=== PATIENT | female | born 1940 | race Caucasian/White ===

== ENCOUNTER 2016-07-13 05:36 | Day surgery (SDC) | payer MEDICARE, OTHER ==
[~2016-07-13] VITALS: Ht 162.6 cm; Wt 81.8 kg
[2016-07-13] VITALS (10 sets, daily range): BP systolic 100–137; BP diastolic 53–89; PULSE 57–75; RESP 14–23; O2SAT 93–99
[~2016-07-13 05:36] MED LIST: ATOR20TA PO; CALC1CAP22 PO; CITA40TA13 PO; GABA-502 PO; HYG25 PO; LISI30TA5 PO; Lactated Ringer's 1,000 ML IV ONE; OXYB5TAB PO
[2016-07-13] MEDS ORDERED: EPHEDrine/NS 5 mg/mL 5 mL Syringe ONE (05:37)
[2016-07-13] MEDS ORDERED: Neostigmine 1 mg/mL 5 mL Inj ONE (05:37)
[2016-07-13] MEDS ORDERED: Propofol 10,000 mCg/mL 20 mL Inj ONE (05:37)
[2016-07-13] MEDS ORDERED: fentaNYL-PF 50 mCg/mL 2 mL Inj ONE (05:37)
[2016-07-13] MEDS ORDERED: Rocuronium 10 mg/mL 5 mL Inj ONE (05:37)
[2016-07-13] MEDS ORDERED: Glycopyrrolate 0.2 mg/mL 5 mL Inj ONE (05:37)
[2016-07-13] MEDS ORDERED: Ondansetron 2 mg/mL 2 mL Inj ONE (05:37)
[2016-07-13] MEDS ORDERED: Heparin 5,000 Unit/mL Inj SUBQ ONE (06:00)
--- NOTE | 2016-07-13 07:21 | PCM.HPANE ---
Patient Data Surgeon Admitting Provider: Attending Provider:Erik Joe MD Primary Care Physician:Michell Joe MD Other Provider:Darien Anderson Anesthesia Reason for Visit Left Flank Hernia Ht/WT & BMI Height (Feet): 5 Height (Inches): 4.00 Weight (Kilograms): 76.400 Body Mass Index 28.00 Allergies Coded Allergies: No Known Allergies (Verified , 07/08/16) Past Anesthesia History Anesthesia History: Denies:: Abnormal Airway, Anesthesia Reactions, Difficult Intubation, Malignant Hyperthermia Diabetes History Hx Diabetes?: No Current Bedside Blood Glucose: 113 MRSA MRSA: No Medications Hypertension Medication: Yes (LISINOPRIL,CHLORTHALIDONE) Home Meds Incl Beta Ana: No Reported Medications Oxybutynin Chloride ER 5 Mg Tab.er.245 Mg PO DAILY Ref 0 07/08/16 Calcium Carbonate/Vitamin D3 (Calcium 600 + Vit D 400 Softgl)1 Each Capsule1 Each PO DAILY 07/08/16 Atorvastatin (Lipitor)20 Mg Aamtdc04 Mg PO DAILY Ref 0 07/08/16 Lisinopril 30 Mg Hhtrzy34 Mg PO DAILY 30 Days Ref 0 07/08/16 Gabapentin 300 Mg Kzfeuyw436 Mg PO PM 30 Days Ref 0 03/14/14 Citalopram 40 Mg Cxdrvn39 Mg PO HS 30 Days Ref 0 02/04/14 Chlorthalidone 25 Mg Lmveov14 Mg PO DAILY #30 TABLET 02/04/14 Discontinued Reported Medications oxyCODONE 5 Mg Capsule5-15 Mg PO Q4H PRN For Pain Ref 0 03/14/14 Docusate Sodium 100 Mg/10 Ml Zzerga644 Mg PO BID PRN For Constipation 30 Days Ref 0 03/14/14 Cyclobenzaprine 10 Mg Tablet5-10 Mg PO TID PRN For Spasm 03/14/14 Omeprazole (Prilosec)40 Mg Capsule.dr40 Mg PO DAILY 30 Days Ref 0 02/04/14 Morphine Sulfate ER (MS Contin)15 Mg Tablet.er15 Mg PO BID 30 Days Ref 0 02/04/14 Lovastatin 20 Mg Uofrmk90 Mg PO DAILY #30 TABLET Ref 0 02/04/14 History History of ENT Problems?: Yes HEENT History: Positive for:: Cataracts (S/P EXTRACTIONS) Hearing Problem Denies:: Abnormal Airway Difficult Intubation Dysphagia Other HEENT Pertinent History: S/P TONSILLECTOMY Hx of Heart Problems?: Yes Cardiovascular History: Positive for:: Heart Murmur (SOFT SYSTOLIC ECHO 08/2005 EF 65%) Hypertension (HYPERLIPIDEMIA) Valvular Heart Disease (AORTIC SCLEROSIS, MILD TR) Denies:: AICD Atrial Fibrillation Chest Pain Hx of Respiratory Problem?: No Respiratory History: Denies:: Asthma COPD Cough Hemoptysis Pneumonia Tuberculosis Use of C-PAP Machine Hx Neurologic Problems?: Yes Neurological History: Positive for:: Headaches (NONE SINCE MENOPAUSE) Denies:: Alzheimer's Disease CVA Dementia Dizziness Parkinson's Disease Seizures Hx of GI Problems?: Yes Gastrointestinal History: Positive for:: Gastroesphageal Reflux (HX PUD) Gastrointestinal Bleeding Denies:: Cirrhosis Diverticulitis (DIVERTICULOSIS) Heartburn Hepatitis Hiatal Hernia Rectal Bleeding (HX HEMORRHOIDS) Other GI Pertinent History: S/P APPY Hx of Problems?: Yes Genitourinary History: Positive for:: Urinary Tract Infection (HX OF) Denies:: Kidney Stones Other Pertinent History: LT FLANK HERNIA=CURRENT PROBLEM Female Hx: Positive for:: Problems with Breasts? (S/P BX) Denies:: Currently Skin History: Positive for:: Pressure Ulcers (S/P DEBRIDEMENT LT BUTTOCK DECUB.) Denies:: History Skin Disorders? 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;LT TSA) Musculoskeletal Trauma (OSTEOMYELITIS RT FEMUR W/ RESULTANT FX S/P ORIF FEMUR ,RT KNEE SCOPE) Hx of Psycho/Social Problems?: Yes Psycho Social History: Positive for:: Anxiety Hx Depression Hx Surgeries?: Yes (RT SREE W/ REVISION,LT TSA,TONSILS,APPY,HYST,LAMI/FUSION L4- 5,BLADDER SLING,) Hx Any Other Health Problems?: Yes Other History: Positive for:: Hospitalization (FEMUR FX/OSTEOMYELITIS 01/2014) Denies:: Cancer Endocrine Disease Thyroid Disease History Blood Transfusions: Positive for:: Blood Transfusions Denies:: Blood Transfuse Reaction Hx Diabetes: NoBedside Blood Glucose: 113 Hx Alcohol Use: NoHx Substance Use: No Smoking Status: Former Smoker Have You Smoked inLast 12 mo: No Stop/Bang S-Snoring: Do You Snore Loudly: No T-Tired: feel tired, fatigued: No O-Obsered: Observed not breath: No P-Blood Pressure: treated: Yes B- Body Mass Index > 35 kg/m2: No A- Age over 50: Yes N- Neck Large Circumference: No G- Gender Male: No KANG Total Score: 2 Risk Assessment Category Category 1A: Patient has history of documented sleep apnea, and HAS NOT received any narcotic, sedative or anesthesia administration during this stay. Category 1B: Patient has history of documented sleep apnea, and HAS received any narcotic , sedative or anesthesia administration during this stay Category 2: Patient has SUSPECTED Obstructive Sleep Apnea, and HAS received any narcotic , sedative or anesthesia administration during this stay. Category 3: Patient has SUSPECTED Obstructive Sleep Apnea and HAS NOT received narcotic, sedative or anesthesia administration during this stay. Category 4: Outpatient in Procedural Areas with known sleep apnea or who screen positive for High Risk via the STOP/BANG questionnaire. Exam Exam Vital Signs Vital Signs Date Time Temp Pulse Resp B/P Pulse Ox O2 Delivery O2 Flow Rate FiO2 07/13/16 06:25 36.3 63 19 137/54 95 Room Air General Appearance: Alert, Oriented X3, Cooperative HEENT/AIRWAY: MP 2, Neck Movement (from), Mouth Opening (wnl) Lungs: Clear to Auscultation Heart: Exam Unremarkable Meds/Labs/Diagnostics Admission Meds Current Medications Lactated Ringer's (Lr) 1,000 ml @ 120 mls/hr Q8H20M ONCE IV Last administered on 07/13/16t 05:34; Start 07/13/16 at 05:00; Stop 07/13/16 at 13:19 Bedside Blood Glucose: 113 Plan Impression Patient chart reviewed, patient interviewed and anesthestic plan with risks, benefits, and alternatives discussed, and informed consent obtained. NPO Status: 1/2 AT 1999 ASA Physical Status: ASA2 Mod Systemic Disease Anesthetic Plan: GA Bene/Risks/Altern/Consents: Yes HP Complete Prior to Induction: Yes Karl Hugo MD Jul 13, 2016 07:21
[2016-07-13] MEDS: CeFAZolin 2 Gm/50 mL D5W IV Premix IV ONE ×2 (07:44→08:17)
[2016-07-13] MEDS ORDERED: Bupivacaine-MPF 0.5% W/EPI 30 mL Inj INJ ONE (07:44)
[2016-07-13] MEDS ORDERED: Bupivacaine-MPF 0.5% 30 mL Inj INFILTRATE ONE (08:35)
[2016-07-13] MEDS ORDERED: Lactated Ringer's 1,000 ML IV SCH (08:47)
[2016-07-13] MEDS ORDERED: Lactated Ringer's 500 ML IV PRN (08:47)
[2016-07-13] MEDS ORDERED: Dexamethasone 4 mg/mL Inj IVPUSH PRN (08:50)
[2016-07-13] MEDS ORDERED: HYDROmorphone 1 mg/mL Inj IVPUSH PRN ×2 (08:50→09:35)
[2016-07-13] MEDS ORDERED: Phenylephrine 10,000 mCg/mL Inj IVPUSH PRN (08:50)
[2016-07-13] MEDS ORDERED: Labetalol 5 mg/mL 4 mL Inj IV PRN (08:50)
[2016-07-13] MEDS ORDERED: hydrALAZINE 20 mg/mL Inj IVPUSH PRN (08:50)
[2016-07-13] MEDS ORDERED: EPHEDrine Sulfate 50 mg/mL Inj IVPUSH PRN (08:50)
[2016-07-13] MEDS ORDERED: Ondansetron 2 mg/mL 2 mL Inj IVPUSH PRN ×2 (08:50→09:35)
[2016-07-13] MEDS ORDERED: Atropine 0.4 mg/mL Inj IVPUSH PRN (08:50)
[2016-07-13] MEDS ORDERED: fentaNYL-PF 50 mCg/mL 2 mL Inj IVPUSH PRN (08:50)
[2016-07-13] MEDS ORDERED: Polyethylene Glycol (PEG) 17 Gm Powder PO PRN (09:35)
[2016-07-13] MEDS ORDERED: MetoCLOpramide 5 mg/mL 2 mL Inj IVPUSH PRN (09:35)
[2016-07-13] MEDS ORDERED: HYDROcodone-APAP 5-325 mg Tablet PO PRN (09:35)
--- NOTE | 2016-07-13 09:50 | PCM.ANEP1 ---
Post Anesthesia Phase 1 PACU Phase 1 Assessment Vital Signs Vital Signs Date Time Temp Pulse Resp B/P Pulse Ox O2 Delivery O2 Flow Rate FiO2 07/13/16 09:45 66 21 121/58 94 Room Air 07/13/16 09:40 71 14 114/67 97 Room Air 07/13/16 09:35 66 23 134/58 99 Simple Mask 8 07/13/16 09:30 36.0 75 22 133/89 97 Simple Mask 8 07/13/16 06:25 36.3 63 19 137/54 95 Room Air Anesthetic Administered: GA Level of Alertness: Awake, talking MARADIAGA's with Equal Strength: Yes Pain: No Nausea or Vomiting: No Oxygen Delivery: Room Air Lungs: Normal Air Movement Karl Hugo MD Jul 13, 2016 09:50
--- NOTE | 2016-07-13 09:58 | OP ---
[address] [address] OPERATIVE REPORT PATIENT: BREEZY CRANE : 1940 MR#: [id number] ADMIT: 07/13/2016 JOB ID: [id number] DATE OF SURGERY: 07/13/2016 PREOPERATIVE DIAGNOSIS(ES): Symptomatic incarcerated left flank hernia. POSTOPERATIVE DIAGNOSIS(ES): Symptomatic incarcerated left flank hernia. PROCEDURE: Repair of symptomatic, incarcerated left flank hernia with mesh. SURGEON: Erik Joe MD. MASTER PLUMBER: Tiago Flowers PA-C. INDICATIONS: The patient is a 76-year-old female who has gradually noticed a developing left flank bulge. She had an abdominal ultrasound that was interpreted as showing a "spigelian" hernia but on physical examination it did not fit with that. A CT scan confirmed that she has a left flank hernia with preperitoneal fat incarcerated. The left kidney had not yet herniated. After discussing options with the patient, it was elected proceed with repair. FINDINGS: She had a fairly large hernia sac but the actual defect was small, only about 2.5 cm in its vertical access with the bed flexed. It was repaired with an 8 cm Ventralex mesh. DESCRIPTION OF PROCEDURE: At the beginning and end of the operation, SCOAP checklist was completed. She received a general endotracheal anesthetic. Rehman catheter was inserted. She had on pneumatic hose. She received preoperative antibiotics and subcutaneous heparin. She is on a whitfield bag, placed in the right lateral decubitus position. Using ChloraPrep, she was prepped and draped in usual fashion. She has had a previous left flank incision for iliac bone harvesting but I do not think that it had anything to do with the development of the hernia. The flank incision was designed between the iliac crest and the 12th rib. It was marked and infiltrated with local anesthesia. Subcutaneous tissue was divided with cautery and the sac was readily identified. It was mobilized out of the subcutaneous tissue and down through the oblique muscles, and a preperitoneal space was easily developed. As stated above, I inserted an 8 cm Ventralex mesh and it was sutured to the deep side of the internal oblique with interrupted 0 PDS sutures. The combined internal oblique and external oblique were then closed over the mesh with running 0 PDS. The subcutaneous tissues were reapproximated with two layers of running subcutaneous 3-0 Vicryl, skin with running subcuticular 4-0 Vicryl. Steri-Strips and sterile dressings were applied. Estimated blood loss less than 10 cc. There were no apparent complications. The final sponge, needle and instrument counts were announced as correct, and the patient was returned to the recovery room in stable condition. Critical assistance was provided by Tiago Flowers PA-C.
--- NOTE | 2016-07-13 11:11 | PCM.ANEP2 ---
Post Anesthesia Evaluation ASA/CMS Post Anesthesia VS in Patient's Normal Range?: Yes Resp Stable; Airway Patent?: Yes CV Function & Hydration Stable: Yes Mental Status Recovered?: Yes Pain control Satisfactory?: Yes N/V Control Satisfactory?: Yes Karl Hugo MD Jul 13, 2016 11:11
[2016-07-13 12:06] LABS: APPEARANCE,URINE CLEAR (CLEAR,HAZY); COLOR,URINE STRAW (YELLOW); OCCULT BLOOD,URINE NEGATIVE (NEGATIVE); PH,URINE 6.5 (5.0-8.0); UROBILINOGEN,URINE NORMAL (NORMAL)
[2016-07-13] MEDS: Lactated Ringer's 1,000 ML IV SCH ×2 (13:55→19:32)
--- NOTE | 2016-07-13 13:57 | NUR ---
Surgery Admit Pt transferred from day surgery at 1330. Report provided by DRAKE Mcfadden. VSS. Rehman to gravity drainage. On RA. Denies pain. L flank dressing CDI. A&Ox4. Denies n/v/d. SCDs on. IS provided and educated at bedside.
--- NOTE | 2016-07-13 17:20 | NUR ---
Activity 1715 Pt OOB to chair for dinner. Tolerated well. VSS and w/o pain. Encouraging po intake. Dressing CDI.
[2016-07-14 01:13] VITALS: BP 97/60; PULSE 69; RESP 14; O2SAT 92
--- NOTE | 2016-07-14 04:13 | NUR ---
PAIN Pt has had few complaints of pain. Pt only complains of pain are during movement, pt denies need for pain medication. Dressing C/D/I. Continuing care.
[2016-07-14 05:00] VITALS: BP 107/64; PULSE 75; RESP 12; O2SAT 89
[2016-07-14] MEDS ORDERED: Calcium Carbonate (Oyster Shell) 500 mg Tablet PO SCH (08:00)
[2016-07-14 08:05] VITALS: BP 109/67; PULSE 73; RESP 20; O2SAT 94
--- NOTE | 2016-07-14 08:26 | PCM.DISURG ---
Surgical Discharge Instruction Date of Service Jul 14, 2016 Dates of Hospitalization Date of Hospital Admission Providers Admitting Physician: Primary Care Physician: Michell Joe MD Attending Physician: Erik Joe MD Diet Discharge Diet: No restrictions Activity Discharge Activity-General: Restrict lifting to no greater than (20-30- lbs for one month) Dressing and Incisional Care Hygiene: May shower Follow Up Plan Follow-up appointment: Days (7-14 days) Erik Joe MD Jul 14, 2016 08:15
[2016-07-14] MEDS ORDERED: Tolterodine ER 2 mg ER24 Capsule PO SCH (08:30)
--- NOTE | 2016-07-14 08:45 | DIS ---
[address] [address] DISCHARGE SUMMARY PATIENT: BREEZY CRANE : 1940 MR#: [id number] ADMIT: 07/13/2016 JOB ID: [id number] DIS: 07/14/2016 DISCHARGE DIAGNOSIS: Large left flank hernia. OPERATION: Repair of large left flank hernia with mesh. HISTORY OF PRESENT ILLNESS: The patient is a 76-year-old female who has had gradual development of a large left flank hernia. She initially had an ultrasound that was interpreted as her having a "spigelian" hernia, but a CT scan correctly identified it as a flank hernia. After discussing options with the patient, it was elected proceed with repair. HOSPITAL COURSE: On the day of admission, her operative repair was performed. See operative report for details. Today, she is doing well. She has no complaints. She denies any pain. She does not even think she needs any prescription pain medications at home. PHYSICAL EXAMINATION: Temperature is 36.9, brachial blood pressure 107, systolic pulse 75, respiratory rate 12, O2 sat on room air 94%. Her left flank incision is healing well. No evidence of seroma or hematoma. IMPRESSION: Today, she is doing very well. There are no reasons not to discharge her. DISPOSITION: She is discharged to home. She will return to see me in 7-14 days. She will take all her usual prescription medications. She will carry with her a prescription for hydrocodone with acetaminophen, but she states she does not think she will fill it.
--- NOTE | 2016-07-14 11:57 | NUR ---
Discharge Pt dc'd ambulatory with family and UA at 1120. All belongings with pt. Reviewed all discharge instructions and pt verbalized understanding. IV dc'd early am w/o complication as well as gross with pt able to void spontaneously shortly following gross removal. Dr. contreras at bedside this am and reviewed instructions for wound care, meds and follow up.
== END 2016-07-14 11:30 | disposition home or self-care (01) ==
LOC: SAS 05:36 → MOC 13:30 → SAS 07-14 11:30
PROVIDERS: ATTEND Surgery
DX: K46.0 Unspecified abdominal hernia with obstruction, without gangrene (principal); I10 Essential (primary) hypertension; M19.90 Unspecified osteoarthritis, unspecified site; R51 Headache; Z87.891 Personal history of nicotine dependence
CPT/HCPCS: 49561; 49568; 81000; C1781; J0690; J1644; J2405; J2710; J7120